=== PATIENT | female | born 1995 | race American Indian/Alaskan Native ===

== ENCOUNTER 2017-10-23 02:00 | Emergency (ER) | payer MEDICAID, OTHER ==
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
[2017-10-23 02:27] VITALS: BP 122/71
== END 2017-10-23 05:04 | disposition home or self-care (01) ==
LOC: DL.ED 02:00
DX: M79.642 Pain in left hand (principal); S80.212A Abrasion, left knee, initial encounter; F10.129 Alcohol abuse with intoxication, unspecified; Z88.6 Allergy status to analgesic agent; Z88.8 Allergy status to other drugs, medicaments and biological substances; W19.XXXA Unspecified fall, initial encounter; Y92.009 Unspecified place in unspecified non-institutional (private) residence as the place of occurrence of the external cause
CPT/HCPCS: 73130-LT; 99283

== ENCOUNTER 2018-02-26 19:43 | Emergency (ER) | payer OTHER ==
[2018-02-26] MEDS ORDERED: Albuterol 6.7 GM Inhaler INH ONE ×2 (19:44→21:48)
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
[2018-02-26 20:44] LABS: ANION GAP 10.3; CHLORIDE,CL 110 mmol/L (101-111); SODIUM,NA 141 mmol/L (135-145)
[2018-02-26] MEDS ORDERED: Codeine/Promethazine 10-6.25 MG/5 ML Syrup 5 ML UD Cup PO ONE (21:35)
== END 2018-02-26 22:00 | disposition home or self-care (01) ==
LOC: DL.ED 19:43
DX: S29.012A Strain of muscle and tendon of back wall of thorax, initial encounter (principal); S20.211A Contusion of right front wall of thorax, initial encounter; J20.9 Acute bronchitis, unspecified; Z88.8 Allergy status to other drugs, medicaments and biological substances; V43.52XA Car driver injured in collision with other type car in traffic accident, initial encounter
CPT/HCPCS: 36415; 71046; 80053; 80305; 81001; 81025; 85025; 99284; A9270; G0480

== ENCOUNTER 2019-05-25 13:47 | Day surgery (SDC) | payer MEDICAID, OTHER ==
[2019-05-25 15:19] LABS: ANION GAP 12.7; CHLORIDE,CL 103 mmol/L (101-111); SODIUM,NA 136 mmol/L (135-145)
[2019-05-25] MEDS ORDERED: Iopamidol 612 MG/ML 100 ML Bottle IVPUSH ONE (15:45)
--- NOTE | 2019-05-25 16:09 | EDM.PDOC ---
ED HPI GENERAL MEDICAL PROBLEM - General Chief Complaint: Abdominal Pain Stated Complaint: INFECTION IN GALLBLADDER Time Seen by Provider: 05/25/19 15:45 Source of Information: Reports: Patient History Limitations: Reports: No Limitations - History of Present Illness INITIAL COMMENTS - FREE TEXT/NARRATIVE: This 24 yo female patient reports was advised to come to the emergency department from the [facility] due to an elevated white count. The patient reports she has diffuse abdominal pain and has not been feeling well for the past couple of days. The patient denies any nausea or vomiting at this vimal. Onset: Sudden Duration: Constant, Getting Worse Location: Reports: Abdomen Quality: Reports: Other Severity: Severe Improves with: Reports: None Worsens with: Reports: None Associated Symptoms: Reports: No Other Symptoms Lower Abdominal Pain Score (Numeric/FACES): 10 - Related Data Allergies Allergy/AdvReac Type Severity Reaction Status Date / Time hydralazine Allergy Hives Verified 05/25/19 14:33 Home Meds: Home Meds . [No Known Home Meds] 05/25/19 [History] Past Medical History HEENT History: Reports: Impaired Vision Other HEENT History: wears glasses Cardiovascular History: Reports: None Respiratory History: Reports: None Gastrointestinal History: Reports: None Other Gastrointestinal History: having stomach pains, will probablly get a check up soon Genitourinary History: Reports: None CASTINGS TRIMMER History: Reports: None Musculoskeletal History: Reports: None Neurological History: Reports: None Psychiatric History: Reports: None Endocrine/Metabolic History: Reports: None, Other (See Below) Other Endocrine/Metabolic History: father states they were told she was borderline diabetic when she graduated from high school Hematologic History: Reports: None Immunologic History: Reports: None Oncologic (Cancer) History: Reports: None Dermatologic History: Reports: None - Infectious Disease History Infectious Disease History: Reports: Chicken Pox - Past Surgical History Head Surgeries/Procedures: Reports: None - History Comment History Comment: 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 Social & Family History - Family History Family Medical History: Noncontributory - Tobacco Use Smoking Status *Q: Current Every Day Smoker Years of Tobacco use: 5 Packs/Tins Daily: 0.5 - Caffeine Use Caffeine Use: Reports: Coffee - Recreational Drug Use Recreational Drug Use: No - Living Situation & Occupation Living situation: Reports: with Family ED ROS GENERAL - Review of Systems Review Of Systems: Comprehensive ROS is negative, except as noted in HPI. ED EXAM, GI/ABD - Physical Exam Exam: See Below Exam Limited By: No Limitations General Appearance: Alert, WD/WN, Moderate Distress Eyes: Bilateral: Normal Appearance, EOMI Ears: Normal External Exam, Normal Canal, Hearing Grossly Normal, Normal TMs Nose: Normal Inspection, Normal Mucosa, No Blood Throat/Mouth: Normal Inspection, Normal Lips, Normal Teeth, Normal Gums, Normal Oropharynx, Normal Voice, No Airway Compromise Head: Atraumatic, Normocephalic Neck: Normal Inspection, Supple, Non-Tender, Full Range of Motion Respiratory/Chest: No Respiratory Distress, Lungs Clear, Normal Breath Sounds, No Accessory Muscle Use, Chest Non-Tender Cardiovascular: Normal Peripheral Pulses, Regular Rate, Rhythm, No Edema, No Gallop, No JVD, No Murmur, No Rub GI/Abdominal Exam: Normal Bowel Sounds, Guarding, Tender (diffuse) (Female) Exam: Deferred Rectal (Female) Exam: Deferred Back Exam: Normal Inspection, Full Range of Motion, NT Extremities: Normal Inspection, Normal Range of Motion, Non-Tender, Normal Capillary Refill, No Pedal Edema Neurological: Alert, Oriented, CN II-XII Intact, Normal Cognition, Normal Gait, Normal Reflexes, No Motor/Sensory Deficits Psychiatric: Normal Affect, Normal Mood Skin Exam: Warm, Dry, Intact, Normal Color, No Rash Lymphatic: No Adenopathy Course - Vital Signs Last Recorded V/S: Last Vital Signs Temp 37.1 C 05/25/19 14:34 Pulse 92 05/25/19 14:34 Resp 20 05/25/19 14:34 BP 100/58 L 05/25/19 14:34 Pulse Ox 100 05/25/19 14:34 - Orders/Labs/Meds Orders: Active Orders 24 hr Category Date Time Status Sodium Chloride 0.9% [Normal Saline] 1,000 ml Med 05/25/19 16:37 Ordered IV .BOLUS Medication Orders Sodium Chloride (Normal Saline) 1,000 mls @ 999 mls/hr IV .BOLUS ONE Stop: 05/25/19 17:37 Last Admin: 05/25/19 16:42 Dose: 999 mls/hr Labs: Laboratory Tests 05/25/19 05/25/19 05/25/19 Range/Units 14:44 14:49 14:49 WBC 17.2 H (5.0-10.0) 10^3/uL RBC 4.39 (4.2-5.4) 10^6/uL Hgb 11.3 L (12.0-16.0) g/dL Hct 35.5 L (37.0-47.0) % MCV 80.9 D (80-100) fL MCH 25.7 L (27.0-34.0) pg MCHC 31.8 L (33.0-35.0) g/dL Plt Count 290 (150-450) 10^3/uL Neut % (Auto) 91.8 H (42.2-75.2) % Lymph % (Auto) 4.2 L (20.5-50.1) % [place] % (Auto) 3.9 (2-8) % Eos % (Auto) 0.0 L (1.0-3.0) % Baso % (Auto) 0.1 (0.0-1.0) % Sodium 136 (135-145) mmol/L Potassium 3.7 (3.6-5.0) mmol/L Chloride 103 (101-111) mmol/L Carbon Dioxide 24.0 (21.0-31.0) mmol/L Anion Gap 12.7 BUN 14 D (7-18) mg/dL Creatinine 0.6 (0.6-1.3) mg/dL Est Cr Clr Drug Dosing 157.69 mL/min Estimated GFR (MDRD) > 60 BUN/Creatinine Ratio 23.33 Glucose 107 H (74-105) mg/dL Lactic Acid (0.5-2.2) mmol/L Calcium 8.9 (8.4-10.2) mg/dl Total Bilirubin 1.0 (0.2-1.0) mg/dL AST 21 (10-42) IU/L ALT 17 (10-60) IU/L Alkaline Phosphatase 61 (42-121) IU/L Total Protein 8.3 H (6.7-8.2) g/dl Albumin 4.3 (3.2-5.5) g/dl Globulin 4.0 Albumin/Globulin Ratio 1.08 Amylase 49 (28-100) U/L Lipase (22-51) U/L Urine Color Dark yellow (YELLOW) Urine Appearance Clear (CLEAR) Urine pH 6.0 (5.0-9.0) Ur Specific [place] >= 1.030 (1.005-1.030) Urine Protein 30 H (NEGATIVE) Urine Glucose (UA) Negative (NEGATIVE) Urine Ketones Negative (NEGATIVE) Urine Occult Blood Large H (NEGATIVE) Urine Nitrite Negative (NEGATIVE) Urine Bilirubin Negative (NEGATIVE) Urine Urobilinogen 0.2 (0.2-1.0) mg/dL Ur Leukocyte Esterase Negative (NEGATIVE) Urine RBC 10-20 H /HPF Urine WBC 0-5 (0-5/HPF) /HPF Ur Epithelial Cells Many H (NOT SEEN) /HPF Urine Bacteria Few (0-FEW/HPF) /HPF Urine Mucus Many H (NOT SEEN) /LPF Urine Opiates Screen (NEGATIVE) Ur Oxycodone Screen (NEGATIVE) Urine Methadone Screen (NEGATIVE) Ur Barbiturates Screen (NEGATIVE) U Tricyclic Antidepress (NEGATIVE) Ur Phencyclidine Scrn (NEGATIVE) Ur Amphetamine Screen (NEGATIVE) U Methamphetamines Scrn (NEGATIVE) Urine MDMA Screen (NEGATIVE) U Benzodiazepines Scrn (NEGATIVE) Urine Cocaine Screen (NEGATIVE) U Marijuana (THC) Screen (NEGATIVE) Ethyl Alcohol < 5 mg/dL 05/25/19 05/25/19 05/25/19 Range/Units 14:49 14:49 14:52 WBC (5.0-10.0) 10^3/uL RBC (4.2-5.4) 10^6/uL Hgb (12.0-16.0) g/dL Hct (37.0-47.0) % MCV (80-100) fL MCH (27.0-34.0) pg MCHC (33.0-35.0) g/dL Plt Count (150-450) 10^3/uL Neut % (Auto) (42.2-75.2) % Lymph % (Auto) (20.5-50.1) % [place] % (Auto) (2-8) % Eos % (Auto) (1.0-3.0) % Baso % (Auto) (0.0-1.0) % Sodium (135-145) mmol/L Potassium (3.6-5.0) mmol/L Chloride (101-111) mmol/L Carbon Dioxide (21.0-31.0) mmol/L Anion Gap BUN (7-18) mg/dL Creatinine (0.6-1.3) mg/dL Est Cr Clr Drug Dosing mL/min Estimated GFR (MDRD) BUN/Creatinine Ratio Glucose (74-105) mg/dL Lactic Acid 1.0 (0.5-2.2) mmol/L Calcium (8.4-10.2) mg/dl Total Bilirubin (0.2-1.0) mg/dL AST (10-42) IU/L ALT (10-60) IU/L Alkaline Phosphatase (42-121) IU/L Total Protein (6.7-8.2) g/dl Albumin (3.2-5.5) g/dl Globulin Albumin/Globulin Ratio Amylase (28-100) U/L Lipase 23 (22-51) U/L Urine Color (YELLOW) Urine Appearance (CLEAR) Urine pH (5.0-9.0) Ur Specific [place] (1.005-1.030) Urine Protein (NEGATIVE) Urine Glucose (UA) (NEGATIVE) Urine Ketones (NEGATIVE) Urine Occult Blood (NEGATIVE) Urine Nitrite (NEGATIVE) Urine Bilirubin (NEGATIVE) Urine Urobilinogen (0.2-1.0) mg/dL Ur Leukocyte Esterase (NEGATIVE) Urine RBC /HPF Urine WBC (0-5/HPF) /HPF Ur Epithelial Cells (NOT SEEN) /HPF Urine Bacteria (0-FEW/HPF) /HPF Urine Mucus (NOT SEEN) /LPF Urine Opiates Screen Negative (NEGATIVE) Ur Oxycodone Screen Negative (NEGATIVE) Urine Methadone Screen Negative (NEGATIVE) Ur Barbiturates Screen Negative (NEGATIVE) U Tricyclic Antidepress Negative (NEGATIVE) Ur Phencyclidine Scrn Negative (NEGATIVE) Ur Amphetamine Screen Negative (NEGATIVE) U Methamphetamines Scrn Negative (NEGATIVE) Urine MDMA Screen Negative (NEGATIVE) U Benzodiazepines Scrn Negative (NEGATIVE) Urine Cocaine Screen Negative (NEGATIVE) U Marijuana (THC) Screen Negative (NEGATIVE) Ethyl Alcohol mg/dL Meds: Medications Generic Name Dose Route Start Last Admin Trade Name Freq PRN Reason Stop Dose Admin Sodium Chloride 1,000 mls @ 999 mls/hr 05/25/19 16:37 05/25/19 16:42 Normal Saline IV 05/25/19 17:37 999 mls/hr .BOLUS ONE Administration Discontinued Medications Generic Name Dose Route Start Last Admin Trade Name Kulwant PRN Reason Stop Dose Admin Iopamidol 75 ml 05/25/19 15:45 05/25/19 16:16 Isovue-300 (61%) IVPUSH 05/25/19 15:46 75 ml ONETIME ONE Administration Departure - Departure Time of Disposition: 17:03 Disposition: Admitted As Inpatient 66 Condition: Fair Clinical Impression: Abdominal pain Qualifiers: Abdominal location: generalized Qualified Code(s): R10.84 - Generalized abdominal pain Cholelithiasis Qualifiers: Cholelithiasis location: gallbladder Cholecystitis presence: with cholecystitis Cholecystitis acuity: acute Biliary obstruction: without biliary obstruction Qualified Code(s): K80.00 - Calculus of gallbladder with acute cholecystitis without obstruction - Discharge Information Care Plan Goals: Discussed the patient history, examination, lab and CT results with Dr. Murillo. Dr. Murillo accepted the patient for continued treatment and further evaluation. Sepsis Event Note - Evaluation Sepsis Screening Result: No Definite Risk - Focused Exam Vital Signs: Vital Signs Temp Pulse Resp BP Pulse Ox 05/25/19 14:34 37.1 C 92 20 100/58 L 100 Date Exam was Performed: 05/25/19 Time Exam was Performed: 17:03 - My Orders Last 24 Hours: My Active Orders 05/25/19 16:37 Sodium Chloride 0.9% [Normal Saline] 1,000 ml IV .BOLUS - Assessment/Plan Last 24 Hours: My Active Orders 05/25/19 16:37 Sodium Chloride 0.9% [Normal Saline] 1,000 ml IV .BOLUS
[2019-05-25] MEDS ORDERED: Sodium Chloride 0.9% 1,000 ML IV ONE (16:37)
--- NOTE | 2019-05-25 16:42 | CT ---
EXAMINATION: Abdomen Pelvis w Cont SEX: Female AGE: 24 years CLINICAL HISTORY: 24-year-old 198 pound female smoker with ABDOMINAL PAIN (WBC 17,000) who was reported on previous CT scan 11 December 2018 to have "cholelithiasis" but otherwise unremarkable. Scan technique: Volume acquisition of data emergency CT scan abdomen without oral contrast but during the intravenous administration 75 cc nonionic Isovue while patient was lying supine on the Siemens multi slice scanner [facility]. All data archived in the PACS system for storage, reformatting and study. Interpretation: Abnormal. 1. At least one large concentrically calcified GALLSTONE. No gallbladder wall thickening or pericystic fluid. No abnormal dilatation of the intra or extrahepatic biliary ducts. 2. Liver, stomach, spleen, pancreas, adrenal glands and kidneys unremarkable except for solitary tiny cyst upper pole right kidney. No renal calcifications or signs of obstructive uropathy. Empty bladder unremarkable. 3. No abdominal or pelvic mass lesion, mesenteric or retroperitoneal lymphadenopathy, inflammatory "dirty" peritoneal fat, sign of mechanical bowel obstruction, ascites or free intraperitoneal air. (Fluid in the colon suggests gastroenteritis) 4. Normal caliber aortoiliac vessels. Lumbar spine unremarkable. 5. Normal cardiac silhouette. Lung bases clear. 6. Normal midline uterus. No adnexal mass lesions. CONCLUSION: Tiny right renal cyst. Cholelithiasis. Possible gastroenteritis. Emergency CT scan abdomen and pelvis otherwise unremarkable.
[2019-05-25] MEDS ORDERED: ceFAZolin 2 GM in Premix Bag 1 BAG IV ONE (17:24)
[2019-05-25] MEDS ORDERED: HYDROmorphone 1 MG/ML Syringe IVPUSH ONE (17:25)
[2019-05-25] MEDS ORDERED: Propofol 200 MG/20 ML SDV IV ONE (17:27)
[2019-05-25] MEDS ORDERED: Lactated Ringers 1,000 ML IV ONE (17:27)
[2019-05-25] MEDS ORDERED: fentaNYL 250 MCG/5 ML SDV IV ONE (17:27)
[2019-05-25] MEDS ORDERED: Lidocaine 2% 20 ML MDV ONE (17:27)
[2019-05-25] MEDS ORDERED: Dexamethasone 4 MG/ML SDV IV ONE (17:27)
[2019-05-25] MEDS ORDERED: Midazolam 1 MG/ML 2 ML SDV IV ONE (17:27)
[2019-05-25] MEDS ORDERED: Neostigmine Methylsulfate 10 MG/10 ML MDV IV ONE (17:27)
[2019-05-25] MEDS ORDERED: Ondansetron 4 MG/2 ML SDV IV ONE (17:27)
[2019-05-25] MEDS ORDERED: Rocuronium 100 MG/10 ML MDV IV ONE (17:27)
[2019-05-25] MEDS ORDERED: Ketorolac 30 MG/ML SDV IVPUSH ONE (17:27)
[2019-05-25] MEDS ORDERED: Glycopyrrolate 0.2 MG/ML 2 ML SDV IV ONE (17:27)
[2019-05-25] MEDS ORDERED: Sugammadex Sodium 200 MG/2 ML VIAL ONE (18:44)
[2019-05-25] MEDS ORDERED: Morphine 2 MG/ML Syringe IVPUSH PRN (19:05)
[2019-05-25] MEDS ORDERED: Sodium Chloride 0.9% 10 ML Syringe FLUSH PRN (19:07)
[2019-05-25] MEDS: Acetaminophen/oxyCODONE 325-5 MG Tab PO PRN (20:37)
--- NOTE | 2019-05-25 23:17 | OR ---
DATE: 05/25/2019 POSTOPERATIVE DIAGNOSES: Chronic cholecystitis, cholelithiasis and diffuse abdominal pain with leukocytosis. POSTOPERATIVE DIAGNOSES: Chronic cholecystitis, cholelithiasis and diffuse abdominal pain with leukocytosis. PROCEDURE: Laparoscopic cholecystectomy. ANESTHESIA: General. ESTIMATED BLOOD LOSS: Minimal. SPECIMEN: Gallbladder and stone. INDICATION FOR PROCEDURE: This 24-year-old female presents to the emergency room with more or less diffuse abdominal pain and an elevated white blood cell count to 17,000. She has had a 2-day history of being sick with abdominal pain. A CT scan shows a large single stone within the gallbladder. No other abnormalities except for a small renal cyst. OPERATIVE FINDINGS: Normal anatomy with gallbladder containing 1 large single stone. PROCEDURE IN DETAIL: After adequate preparation, an infraumbilical incision was made. A Veress needle placed intra-abdominally for insufflation. This was then exchanged for a 5-mm trocar. Two other 5-mm trocars were placed under direct vision as well as an epigastric 10-mm port. As the patient had diffuse and especially lower abdominal pain, I did spend some time looking down in the pelvis. The patient was placed in Trendelenburg and the small bowel was taken out of the pelvis. I could see the right tube and ovary which appeared to be normal, as did the left tube and ovary. There was no evidence of cystic structures or inflammation of the tubes. I did not examine the uterus very well. The small bowel and colon within the pelvis looked normal and no evidence of Crohn disease or enteritis externally. The appendix was noted and is also normal. I did not mobilize it from the attachments near the cecum. No other intraabdominal abnormalities were noted. The patient was then placed in reverse Trendelenburg. The cystic triangle structures were identified, divided, triply clipped, and then severed. The gallbladder was taken off the liver bed using cautery dissection. There was no spillage of bile or stones and no bleeding. The gallbladder was taken out through the epigastric trocar site by dilating the fascia, which was then reclosed using 0-Vicryl suture, 4-0 Vicryl was used for the skin. [facility] /[id number]
[2019-05-26] MEDS: Acetaminophen/oxyCODONE 325-5 MG Tab PO PRN ×3 (00:33→08:29)
--- NOTE | 2019-05-26 07:44 | PCM.SN ---
- Free Text/Narrative Note: Stable POD#1. Pain better. PO tolerated. VSS. Can discharge. FU PCP clinic if needed. Percocet (#10) given for pain. No restrictions.
[2019-05-26 08:32] VITALS: BP 110/48; PULSE 70
--- NOTE | 2019-05-26 08:53 | HP ---
INTRODUCTION: This 24-year-old female was referred by [facility] to the emergency room for evaluation of abdominal pain and an elevated white blood cell count. The patient states she has had more or less diffuse abdominal pain over the last 2 days and has tried to take some Tylenol for this without any improvement. She had a CT scan done, which showed a large gallstone in the neck of the gallbladder and there are no other abnormalities noted except a small renal cyst. The patient's white count in the emergency room here was 17,000. She has no nausea or vomiting. PAST MEDICAL HISTORY: ALLERGIES: The patient has an allergy to some kind of antidepressant, but she does not remember the name. She otherwise has no other medicine allergies to antibiotics. MEDICATIONS: She does not take any current medications regularly. PAST SURGICAL HISTORY: She has had no prior surgeries. FAMILY HISTORY AND SOCIAL HISTORY: The patient is single. She has a live-in boyfriend. She currently does not work. She does smoke cigarettes, only occasionally uses alcohol, and has had problems with drugs, but presently claims to be clean. REVIEW OF SYSTEMS: Negative for all systems. 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 PHYSICAL EXAMINATION: HEENT: Normal. Chest: Lungs are clear bilaterally. Heart: Normal sinus rhythm. Abdomen: Tender diffusely, however, by my exam seems to be more lower than upper abdomen. She does have a positive Blevins sign in the right upper quadrant. Bowel sounds are normal. Extremities: Good range of motion. Neurologic: Intact. ASSESSMENT: Diffuse abdominal pain, cholelithiasis and elevated white blood cell count. PLAN: I think some of her symptoms could be related to the gallbladder; however, I do not think it accounts for all of her diffuse pain. I cannot see anything else on CAT scan, however, and her lower abdominal pain can be evaluated when her gallbladder is removed. I discussed this option with the patient of proceeding with a laparoscopic cholecystectomy. For the current time, I am going to give her some IV antibiotics, pain control, and proceed with surgery this evening. [facility] /[id number]
[2019-05-26] MEDS ORDERED: Sodium Chloride 0.9% 1,000 ML IV ONE (09:18)
== END 2019-05-26 10:15 | disposition home or self-care (01) ==
LOC: DL.ED 13:47 → DL.SDS 17:26 → DL.MS 21:01 → DL.SDS 05-26 10:15
PROVIDERS: ATTEND Surgery
DX: K80.10 Calculus of gallbladder with chronic cholecystitis without obstruction (principal); D72.829 Elevated white blood cell count, unspecified; F17.210 Nicotine dependence, cigarettes, uncomplicated; Z88.8 Allergy status to other drugs, medicaments and biological substances
CPT/HCPCS: 36415; 47562; 74177; 80053; 80305; 80320; 81001; 81025; 82150; 83605; 83690; 85025; 96361; 96374; 96375; 99285; A9270; J0690; J1100; J1170; J1885; J2001; J2250; J2405; J2704; J2710; J3010; J3490; J7030; J7120; Q9967; G0480

== ENCOUNTER 2020-01-08 16:17 | Emergency (ER) | payer MEDICAID, OTHER ==
[2020-01-08 16:27] VITALS: BP 157/89; PULSE 111
--- NOTE | 2020-01-08 16:28 | EDM.PDOC ---
ED HPI GENERAL MEDICAL PROBLEM - General Chief Complaint: Lower Extremity Injury/Pain Stated Complaint: LEFT FOOT CUT BY CASSIDY CALZADA Time Seen by Provider: 01/08/20 16:27 Source of Information: Reports: Patient, RN, RN Notes Reviewed - History of Present Illness INITIAL COMMENTS - FREE TEXT/NARRATIVE: Patient presents to ER with complaint of cutting her left great toe with a lawnmower blade. Patient states the lawnmower was getting clogged up and she was trying to unclog the area. States the lawnmower blade hit her left great toe, cutting her shoe. No blood visible on the shoe upon arrival. Blade did hit the left great toe causing a 3.5 cm laceration to the medial great toe. Also pulled up the proximal great toenail from the nail bed. Nail is intact just lifted from the bed. Patient states her tetanus was last updated approximately 2 years ago. Onset: Today, Sudden Left Feet Pain Score (Numeric/FACES): 10 - Related Data Allergies Allergy/AdvReac Type Severity Reaction Status Date / Time hydralazine Allergy Hives Verified 01/08/20 16:27 Home Meds: Home Meds . [No Known Home Meds] 05/25/19 [History] Past Medical History HEENT History: Reports: Impaired Vision Other HEENT History: wears glasses Cardiovascular History: Reports: None Respiratory History: Reports: None Gastrointestinal History: Reports: None Other Gastrointestinal History: having stomach pains, will probablly get a check up soon Genitourinary History: Reports: None HIGH PRESSURE OPERATOR History: Reports: None Musculoskeletal History: Reports: None Neurological History: Reports: None Psychiatric History: Reports: None Endocrine/Metabolic History: Reports: None, Other (See Below) Other Endocrine/Metabolic History: father states they were told she was b orderline diabetic when she graduated from high school Hematologic History: Reports: None Immunologic History: Reports: None Oncologic (Cancer) History: Reports: None Dermatologic History: Reports: None - Infectious Disease History Infectious Disease History: Reports: Chicken Pox - Past Surgical History Head Surgeries/Procedures: Reports: None - History Comment History Comment: 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 Social & Family History - Family History Family Medical History: Noncontributory - Caffeine Use Caffeine Use: Reports: Coffee - Living Situation & Occupation Living situation: Reports: with Family Review of Systems - Review of Systems Review Of Systems: Comprehensive ROS is negative, except as noted in HPI. ED EXAM, GENERAL - Physical Exam Exam: See Below Exam Limited By: No Limitations General Appearance: Alert, WD/WN, Moderate Distress Eye Exam: Bilateral Eye: EOMI, Normal Inspection Ears: Normal External Exam, Hearing Grossly Normal Nose: Normal Inspection Throat/Mouth: Normal Inspection, Normal Voice, No Airway Compromise Head: Atraumatic, Normocephalic Neck: Normal Inspection, Supple, Non-Tender, Full Range of Motion Respiratory/Chest: No Respiratory Distress, Lungs Clear, Normal Breath Sounds, No Accessory Muscle Use, Chest Non-Tender Cardiovascular: Normal Peripheral Pulses, Regular Rate, Rhythm, No Edema, No Gallop, No JVD, No Murmur, No Rub Peripheral Pulses: 2+: Radial (L), Radial (R), Dorsalis Pedis (L), Dorsalis Pedis (R) GI/Abdominal: Normal Bowel Sounds, Soft, Non-Tender (Female) Exam: Deferred Rectal (Female) Exam: Deferred Back Exam: Normal Inspection, Full Range of Motion, NT Extremities: Normal Inspection, Normal Range of Motion, Non-Tender, Normal Capillary Refill, No Pedal Edema Neurological: Alert, Oriented, CN II-XII Intact, Normal Cognition, Normal Gait, Normal Reflexes, No Motor/Sensory Deficits Psychiatric: Normal Affect, Normal Mood, Anxious Skin Exam: Warm, Dry, Other (3.5cm laceration to left great toe) Lymphatic: No Adenopathy ED TRAUMA EXTREMITY PROCEDURES - Laceration/Wound Repair Left Medial Toe - Great Lac/Wound Length In cm: 3.5 Appearance: Subcutaneous Distal NVT: Neuro & Vascular Intact Anesthetic Type: Local Local Anesthesia - Lidocaine (Xylocaine): 1% Plain Local Anesthetic Volume: 4cc Skin Prep: Chlorhexidine (Hibiciens) Exploration/Debridement/Repair: Wound Explored, In a Bloodless Field, No Foreign Material Found Closed With: Sutures Suture Size: 4-0 # of Sutures: 4 Suture Type: Nylon, Interrupted Drain Placement: No Sterile Dressing Applied: Provider Tetanus Status Addressed: Yes Complications: No Course - Vital Signs Last Recorded V/S: Last Vital Signs Temp 98.4 F 01/08/20 16:21 Pulse 111 H 01/08/20 16:21 Resp 18 01/08/20 16:21 BP 157/89 H 01/08/20 16:21 Pulse Ox 98 01/08/20 16:21 - Orders/Labs/Meds Meds: Medications Discontinued Medications Generic Name Dose Route Start Last Admin Trade Name Kulwant PRN Reason Stop Dose Admin Bacitracin 1 dose 01/08/20 16:45 01/08/20 17:10 Bacitracin Oint 1 Gm TOP 01/08/20 16:46 1 dose ONETIME ONE Administration Cephalexin 500 mg 01/08/20 17:49 01/08/20 17:57 Keflex PO 01/08/20 17:50 500 mg ONETIME ONE Administration Lidocaine HCl 30 ml 01/08/20 16:45 01/08/20 17:09 Xylocaine-Mpf 1% INJECT 01/08/20 16:46 30 ml ONETIME ONE Administration - Radiology Interpretation Free Text/Narrative:: Xray left great toe: PROCEDURE INFORMATION: Exam: XR Left Toe(s) Exam date and time: 01/08/2020 5:30 PM Age: 24 years old Clinical indication: Injury or trauma; Injury history: Lawnmower blade cut; Initial encounter; Blunt trauma; Toes; Left; Injury date: 01-08-2020; Additional info: bed spring maker blade cut left great toe TECHNIQUE: Imaging protocol: XR Left toes. Views: Minimum 2 views. COMPARISON: No relevant prior studies available. FINDINGS: Bones/joints: Acute fractures distal phalanx great toe. Soft tissues: Soft tissue edema great toe. Otherwise unremarkable. No radiopaque foreign body. IMPRESSION: Acute fractures distal phalanx great toe. Soft tissue edema. Thank you for allowing us to participate in the care of your patient. Dictated and Authenticated by: Venancio Alex MD 01/08/2020 5:46 PM Central Time ([place] & [place]) See rad report Departure - Departure Time of Disposition: 17:58 Disposition: Home, Self-Care 01 Condition: Fair Clinical Impression: Laceration, Injury of nail bed of toe Fracture of phalanx of left great toe Qualifiers: Encounter type: initial encounter Fracture type: open Phalanx: distal Fracture alignment: nondisplaced Qualified Code(s): S92.425B - Nondisplaced fracture of distal phalanx of left great toe, initial encounter for open fracture - Discharge Information *PRESCRIPTION DRUG MONITORING PROGRAM REVIEWED*: No *COPY OF PRESCRIPTION DRUG MONITORING REPORT IN PATIENT CANDELARIA: No Instructions: Toe Fracture, [id number], Laceration Care, Adult, [id number], Sutures, Geovanny, or Adhesive Wound Closure, [id number], Nail Bed Injury, [id number] Forms: ED Department Discharge Additional Instructions: Keep area clean and dry You may shower, but dab dry and keep covered to keep clean Monitor for signs of infection i.e. redness, swelling, drainage, warmth, fever or chills Follow-up in the clinic in 7 to 10 days to have sutures removed RX: Cephalexin Sepsis Event Note (ED) - Evaluation Sepsis Screening Result: No Definite Risk - Focused Exam Vital Signs: Vital Signs Temp Pulse Resp BP Pulse Ox 01/08/20 16:21 98.4 F 111 H 18 157/89 H 98
[2020-01-08] MEDS ORDERED: Lidocaine 1% 30 ML SDV INJECT ONE (16:45)
[2020-01-08] MEDS ORDERED: Bacitracin Oint 1 GM U/D Packet TOP ONE (16:45)
--- NOTE | 2020-01-08 17:46 | CR ---
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 Views: Minimum 2 views. COMPARISON: No relevant prior studies available. FINDINGS: Bones/joints: Acute fractures distal phalanx great toe. Soft tissues: Soft tissue edema great toe. Otherwise unremarkable. No radiopaque foreign body. IMPRESSION: Acute fractures distal phalanx great toe. Soft tissue edema.
[2020-01-08] MEDS ORDERED: Cephalexin 500 MG Cap PO ONE (17:49)
== END 2020-01-08 18:02 | disposition home or self-care (01) ==
LOC: DL.ED 16:17
DX: S92.425B Nondisplaced fracture of distal phalanx of left great toe, initial encounter for open fracture (principal); Z88.8 Allergy status to other drugs, medicaments and biological substances; W28.XXXA Contact with powered lawn mower, initial encounter
CPT/HCPCS: 12002; 73660; 99283; 99284; A9270; J2001

== ENCOUNTER 2020-11-20 19:36 | Emergency (ER) | payer MEDICAID, OTHER ==
[2020-11-20 20:24] VITALS: BP 123/65; PULSE 99
[2020-11-20 20:29] LABS: ANION GAP 13.1 mEq/L (7-13); CHLORIDE,CL 101 mmol/L (98-107); SODIUM,NA 135 mmol/L (136-145)
--- NOTE | 2020-11-20 22:55 | EDM.PDOC ---
ED HPI GENERAL MEDICAL PROBLEM - General Chief Complaint: General Stated Complaint: MEDICAL CLEARANCE DANTE Time Seen by Provider: 11/20/20 22:20 Source of Information: Reports: Patient, Police, RN, RN Notes Reviewed History Limitations: Reports: No Limitations - History of Present Illness INITIAL COMMENTS - FREE TEXT/NARRATIVE: Patient is a 25-year-old female who presents to ER with DANTE officer for medical clearance prior to incarceration. Patient states she does know she is . States LMP was "in August", unsure of the date. She states she does have her 1st appointment set up at [facility] on November 27. Patient states this is her 1st , denies any miscarriages. Patient denies any drug or alcohol use. States the only medication she takes is a vitamin on a daily basis. Patient also denies any vaginal bleeding, cramping or pain. Onset: Unknown/Unsure - Related Data Allergies Allergy/AdvReac Type Severity Reaction Status Date / Time hydralazine Allergy Hives Verified 01/08/20 16:27 Home Meds: Home Meds . [No Known Home Meds] 05/25/19 [History] Past Medical History - Past Health History Medical/Surgical History: Denies Medical/Surgical History HEENT History: Reports: Impaired Vision Other HEENT History: wears glasses Cardiovascular History: Reports: None Respiratory History: Reports: None Gastrointestinal History: Reports: None Other Gastrointestinal History: having stomach pains, will probablly get a check up soon Genitourinary History: Reports: None ADMISSIONS GATE ATTENDANT History: Reports: None Musculoskeletal History: Reports: None Neurological History: Reports: None Psychiatric History: Reports: None Endocrine/Metabolic History: Reports: None, Other (See Below) Other Endocrine/Metabolic History: father states they were told she was borderline diabetic when she graduated from high school Hematologic History: Reports: None Immunologic History: Reports: None Oncologic (Cancer) History: Reports: None Dermatologic History: Reports: None - Infectious Disease History Infectious Disease History: Reports: Chicken Pox - Past Surgical History Head Surgeries/Procedures: Reports: None GI Surgical History: Reports: None - History Comment History Comment: 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 Social & Family History - Family History Family Medical History: No Pertinent Family History - Tobacco Use Tobacco Use Status *Q: Current Every Day Tobacco User Years of Tobacco use: 2 Packs/Tins Daily: 0.1 Second Hand Smoke Exposure: Yes - Caffeine Use Caffeine Use: Reports: Coffee - Recreational Drug Use Recreational Drug Use: No - Living Situation & Occupation Living situation: Reports: with Family ED ROS GENERAL - Review of Systems Review Of Systems: Comprehensive ROS is negative, except as noted in HPI. ED EXAM, GENERAL - Physical Exam Exam: See Below Exam Limited By: No Limitations General Appearance: Alert, WD/WN, No Apparent Distress Eye Exam: Bilateral Eye: EOMI, Normal Inspection Ears: Normal External Exam, Hearing Grossly Normal Nose: Normal Inspection Throat/Mouth: Normal Inspection, Normal Voice, No Airway Compromise Head: Atraumatic, Normocephalic Neck: Normal Inspection, Supple, Non-Tender, Full Range of Motion Respiratory/Chest: No Respiratory Distress, Lungs Clear, Normal Breath Sounds, No Accessory Muscle Use, Chest Non-Tender Cardiovascular: Normal Peripheral Pulses, Regular Rate, Rhythm, No Edema, No Gallop, No JVD, No Murmur, No Rub Peripheral Pulses: 2+: Radial (L), Radial (R) GI/Abdominal: Normal Bowel Sounds, Soft, Non-Tender (Female) Exam: Deferred Rectal (Female) Exam: Deferred Back Exam: Normal Inspection, Full Range of Motion, NT Extremities: Normal Inspection, Normal Range of Motion, Non-Tender, Normal Ca pillary Refill, No Pedal Edema Neurological: Alert, Oriented, CN II-XII Intact, Normal Cognition, Normal Gait, Normal Reflexes, No Motor/Sensory Deficits Psychiatric: Normal Affect, Normal Mood Skin Exam: Warm, Dry, Intact, Normal Color, No Rash Lymphatic: No Adenopathy Course - Vital Signs Last Recorded V/S: Last Vital Signs Temp 98 F 11/20/20 20:18 Pulse 99 11/20/20 20:18 Resp 18 11/20/20 20:18 BP 123/65 11/20/20 20:18 Pulse Ox 97 11/20/20 20:18 - Orders/Labs/Meds Orders: Active Orders 24 hr Category Date Time Status CULTURE URINE [RM] Stat Lab 11/20/20 19:57 Received Labs: Laboratory Tests 11/20/20 11/20/20 11/20/20 Range/Units 19:55 19:55 19:57 WBC 9.1 (5.0-10.0) 10^3/uL RBC 4.65 (4.2-5.4) 10^6/uL Hgb 11.9 L (12.0-16.0) g/dL Hct 37.2 (37.0-47.0) % MCV 80.0 (80-100) fL MCH 25.6 L (27.0-34.0) pg MCHC 32.0 L (33.0-35.0) g/dL Plt Count 324 (150-450) 10^3/uL Neut % (Auto) 63.7 (42.2-75.2) % Lymph % (Auto) 23.0 (20.5-50.1) % [place] % (Auto) 10.8 H (2-8) % Eos % (Auto) 2.4 (1.0-3.0) % Baso % (Auto) 0.1 (0.0-1.0) % Sodium 135 L (136-145) mmol/L Potassium 4.1 (3.5-5.1) mmol/L Chloride 101 (98-107) mmol/L Carbon Dioxide 25 (21-32) mmol/L Anion Gap 13.1 H (7-13) mEq/L BUN 9 (7-18) mg/dL Creatinine 0.52 L (0.55-1.02) mg/dL Est Cr Clr Drug Dosing 180.40 mL/min Estimated GFR (MDRD) > 60 BUN/Creatinine Ratio 17.3 (No establ ref range) Glucose 101 H (70-99) mg/dL Calcium 8.2 L (8.5-10.1) mg/dL Total Bilirubin 0.2 (0.2-1.0) mg/dL AST 23 (15-37) U/L ALT 65 H (14-59) U/L Alkaline Phosphatase 81 (46-116) U/L Total Protein 7.6 (6.4-8.2) g/dL Albumin 3.1 L (3.4-5.0) g/dL Globulin 4.5 Albumin/Globulin Ratio 0.69 Urine Color (YELLOW) Urine Appearance (CLEAR) Urine pH (5.0-9.0) Ur Specific [place] (1.005-1.030) Urine Protein (NEGATIVE) Urine Glucose (UA) (NEGATIVE) Urine Ketones (NEGATIVE) Urine Occult Blood (NEGATIVE) Urine Nitrite (NEGATIVE) Urine Bilirubin (NEGATIVE) Urine Urobilinogen (0.2-1.0) mg/dL Ur Leukocyte Esterase (NEGATIVE) Urine RBC /HPF Urine WBC (0-5/HPF) /HPF Ur Epithelial Cells (NOT SEEN) /HPF Amorphous Sediment (NOT SEEN) /HPF Urine Bacteria (0-FEW/HPF) /HPF Urine Mucus (NOT SEEN) /LPF Urine Trichomonas (NOT SEEN) /HPF Urine HCG, Qual Positive Urine Opiates Screen (NEGATIVE) Ur Oxycodone Screen (NEGATIVE) Urine Methadone Screen (NEGATIVE) Ur Barbiturates Screen (NEGATIVE) U Tricyclic Antidepress (NEGATIVE) Ur Phencyclidine Scrn (NEGATIVE) Ur Amphetamine Screen (NEGATIVE) U Methamphetamines Scrn (NEGATIVE) Urine MDMA Screen (NEGATIVE) U Benzodiazepines Scrn (NEGATIVE) Urine Cocaine Screen (NEGATIVE) U Marijuana (THC) Screen (NEGATIVE) Ethyl Alcohol < 3 (0) mg/dL 11/20/20 11/20/20 Range/Units 19:57 19:57 WBC (5.0-10.0) 10^3/uL RBC (4.2-5.4) 10^6/uL Hgb (12.0-16.0) g/dL Hct (37.0-47.0) % MCV (80-100) fL MCH (27.0-34.0) pg MCHC (33.0-35.0) g/dL Plt Count (150-450) 10^3/uL Neut % (Auto) (42.2-75.2) % Lymph % (Auto) (20.5-50.1) % [place] % (Auto) (2-8) % Eos % (Auto) (1.0-3.0) % Baso % (Auto) (0.0-1.0) % Sodium (136-145) mmol/L Potassium (3.5-5.1) mmol/L Chloride (98-107) mmol/L Carbon Dioxide (21-32) mmol/L Anion Gap (7-13) mEq/L BUN (7-18) mg/dL Creatinine (0.55-1.02) mg/dL Est Cr Clr Drug Dosing mL/min Estimated GFR (MDRD) BUN/Creatinine Ratio (No establ ref range) Glucose (70-99) mg/dL Calcium (8.5-10.1) mg/dL Total Bilirubin (0.2-1.0) mg/dL AST (15-37) U/L ALT (14-59) U/L Alkaline Phosphatase (46-116) U/L Total Protein (6.4-8.2) g/dL Albumin (3.4-5.0) g/dL Globulin Albumin/Globulin Ratio Urine Color Yellow (YELLOW) Urine Appearance Turbid (CLEAR) Urine pH 6.0 (5.0-9.0) Ur Specific [place] 1.025 (1.005-1.030) Urine Protein 30 H (NEGATIVE) Urine Glucose (UA) Negative (NEGATIVE) Urine Ketones Negative (NEGATIVE) Urine Occult Blood Trace-intact H (NEGATIVE) Urine Nitrite Negative (NEGATIVE) Urine Bilirubin Negative (NEGATIVE) Urine Urobilinogen 0.2 (0.2-1.0) mg/dL Ur Leukocyte Esterase Large H (NEGATIVE) Urine RBC 10-20 H /HPF Urine WBC >100 H (0-5/HPF) /HPF Ur Epithelial Cells Moderate H (NOT SEEN) /HPF Amorphous Sediment Moderate H (NOT SEEN) /HPF Urine Bacteria Moderate H (0-FEW/HPF) /HPF Urine Mucus Moderate H (NOT SEEN) /LPF Urine Trichomonas Present H (NOT SEEN) /HPF Urine HCG, Qual Urine Opiates Screen Negative (NEGATIVE) Ur Oxycodone Screen Negative (NEGATIVE) Urine Methadone Screen Negative (NEGATIVE) Ur Barbiturates Screen Negative (NEGATIVE) U Tricyclic Antidepress Negative (NEGATIVE) Ur Phencyclidine Scrn Negative (NEGATIVE) Ur Amphetamine Screen Negative (NEGATIVE) U Methamphetamines Scrn Positive H (NEGATIVE) Urine MDMA Screen Negative (NEGATIVE) U Benzodiazepines Scrn Negative (NEGATIVE) Urine Cocaine Screen Negative (NEGATIVE) U Marijuana (THC) Screen Negative (NEGATIVE) Ethyl Alcohol (0) mg/dL - Re-Assessments/Exams Free Text/Narrative Re-Assessment/Exam: 11/21/20 04:27 Attempted with Doppler to hear heart tones, unable to at this time. Departure - Departure Time of Disposition: 22:53 Disposition: Home, Self-Care 01 Condition: Good Clinical Impression: Medical clearance for incarceration, Trichimoniasis Qualifiers: Weeks of gestation: unspecified Qualified Code(s): Z34.90 - Encounter for supervision of normal , unspecified, unspecified trimester UTI (urinary tract infection) Qualifiers: Urinary tract infection type: acute cystitis Hematuria presence: without hematuria Qualified Code(s): N30.00 - Acute cystitis without hematuria - Discharge Information *PRESCRIPTION DRUG MONITORING PROGRAM REVIEWED*: No *COPY OF PRESCRIPTION DRUG MONITORING REPORT IN PATIENT CANDELARIA: No Instructions: First Trimester of , [id number] Referrals: PCP,None [Primary Care Provider] - Forms: ED Department Discharge Additional Instructions: Refrain from using drugs or alcohol Follow up with your primary care facility for your already scheduled appointment on November 27 Continue taking vitamin RX: Metronidazole, Macrobid Patient is medically stable at this time to be discharged with law enforcement Sepsis Event Note (ED) - Evaluation Sepsis Screening Result: No Definite Risk - Focused Exam Vital Signs: Vital Signs Temp Pulse Resp BP Pulse Ox 11/20/20 20:18 98 F 99 18 123/65 97 - My Orders Last 24 Hours: My Active Orders 11/20/20 19:57 CULTURE URINE [RM] Stat - Assessment/Plan Last 24 Hours: My Active Orders 11/20/20 19:57 CULTURE URINE [RM] Stat
== END 2020-11-20 23:21 | disposition home or self-care (01) ==
LOC: DL.ED 19:36
DX: O98.911 Unspecified maternal infectious and parasitic disease complicating pregnancy, first trimester (principal); A59.9 Trichomoniasis, unspecified; Z02.89 Encounter for other administrative examinations
CPT/HCPCS: 36415; 80053; 80305-QW; 80307; 81001; 81025; 85025; 87086; 99283

== ENCOUNTER 2021-06-16 09:30 | Inpatient (IN) | payer MEDICAID ==
[2021-06-16] MEDS ORDERED: Acetaminophen 325 MG Tab PO PRN ×2 (09:36→20:23)
[2021-06-16] MEDS ORDERED: Tranexamic Acid 1,000 MG in Sodium Chloride 0.9% 100 ML IV PRN ×2 (09:36→20:23)
[2021-06-16] MEDS ORDERED: Carboprost Tromethamine 250 MCG/1 ML Amp IM PRN (09:36)
[2021-06-16] MEDS ORDERED: Lactated Ringers 1,000 ML IV ONE (09:36)
[2021-06-16] MEDS ORDERED: Misoprostol 400 MCG (4 X 100 MCG TAB) RECTAL PRN ×2 (09:36→20:23)
[2021-06-16] MEDS ORDERED: Naloxone 2 MG/2 ML Syringe IVPUSH PRN (09:36)
[2021-06-16] MEDS ORDERED: Promethazine 25 MG/ML SDV IM PRN (09:36)
[2021-06-16] MEDS ORDERED: Lidocaine 1% 30 ML SDV INJECT PRN (09:36)
[2021-06-16] MEDS ORDERED: ePHEDrine 50 MG/ML SDV IVPUSH PRN (09:36)
[2021-06-16] MEDS ORDERED: Ondansetron 4 MG/2 ML SDV IVPUSH PRN ×2 (09:36)
[2021-06-16] MEDS ORDERED: Methylergonovine 0.2 MG/1 ML Amp IM PRN (09:36)
[2021-06-16] MEDS ORDERED: Nalbuphine 10 MG/1 ML Vial IM ONE (09:39)
[2021-06-16] MEDS ORDERED: Lactated Ringers 500 ML IV SCH ×2 (09:45)
--- NOTE | 2021-06-16 11:13 | OBOUT ---
DATE: 06/16/2021 STUDY: NST report. INDICATION FOR NST: The patient presents for evaluation of possible early labor. REPORT: Baseline heart rate 140 beats per minute. Moderate lftk-[id number] variability. Accelerations are noted. [place] shows contractions approximately every 3-4 minutes. INTERPRETATION: Category 1 reassuring and reactive NST. [facility] /[id number]
[2021-06-16 12:06] LABS: AMPHETAMINES,URINE NEGATIVE (NEGATIVE); BARBITURATES,URINE NEGATIVE (NEGATIVE); BENZODIAZEPINE,URINE NEGATIVE (NEGATIVE); MDMA (ECSTASY), URINE NEGATIVE (NEGATIVE); METHADONE,URINE NEGATIVE (NEGATIVE); METHAMPHETAMINES,URINE NEGATIVE (NEGATIVE); OPIATES,URINE NEGATIVE (NEGATIVE); OXYCODONE,URINE NEGATIVE (NEGATIVE); PHENCYCLIDINE,URINE NEGATIVE (NEGATIVE); TCA,URINE NEGATIVE (NEGATIVE)
[2021-06-16] MEDS: Benzocaine/Cetylpyridinium/Menthol Lozenge MUCMEM PRN (12:45)
[2021-06-16] MEDS ORDERED: EPINEPHrine 1 MG/ML SDV ONE ×2 (13:03→15:55)
[2021-06-16] MEDS ORDERED: fentaNYL 100 MCG/2 ML SDV ITHECAL ONE (13:03)
[2021-06-16] MEDS: Lactated Ringers 1,000 ML IV SCH ×2 (14:40→16:27)
[2021-06-16] MEDS: Oxytocin/Normal Saline 30 UNIT/500 ML BAG IV SCH ×2 (14:45→21:05)
[2021-06-16] MEDS ORDERED: fentaNYL 100 MCG/2 ML SDV ONE (15:54)
--- NOTE | 2021-06-16 16:32 | PCM.PRNOTE ---
- Free Text/Narrative Note: Requested to provide analgesia to full term patient in severe pain. Upon entering the room, patient is sitting on edge of bed complaining of severe abdominal/pelvic pain and discomfort. Procedure was discussed with patient including adverse outcomes and expectations. Pt consented to analgesia, SAB/IT. Pt placed into a proper sitting position. Landmarks for SAB/IT were identified and marked. Hands were washed and appropriate PPE was applied. Back was prepped with betadine x3. A sterile, transparent, fenestrated drape was applied. Excess betadine was removed. Using 3 mL of a 1% lidocaine solution, a skin wheel was placed at the L2/L3 interspace. A 24 ga (4 inch) Pencan spinal needle was inserted until positive for CSF. Negative for heme or paresthesias. Injected fentanyl 30 mcg, sufentanil 25 mcg, and 9 mg of a 0.75% bupivacaine solution with an epi wash. Pt was placed left lateral tilt position for approximately 20 minutes. There were zero complications or adverse outcomes. Will continue to monitor. Procedure Date & Time: 06/16/2021 [id number]
--- NOTE | 2021-06-16 16:43 | PN ---
DATE: 06/16/2021 TIME: 1625. SUBJECTIVE: The patient is resting comfortably. She has just received her intrathecal, and other than having the abnormal sensation of not being able to feel her legs, she is doing well and has no acute concerns. OBJECTIVE: Cervical exam, felt like it was 6 cm dilated with bulging bag of water intact which was ruptured with [place]nio [place], had good return of clear fluid. After that, cervix felt more like 5 cm dilated, 95% effaced, about 0 station. heart tones are tracing at 140 beats per minute at baseline, moderate [id number]-sr-[id number] variability. Accelerations are noted. [place] showing contractions have spaced a little bit to about every 3 minutes. ASSESSMENT: Overall unchanged from admission. Labor is progressing nicely. We will have a Pitocin running as well as artificial rupture of membranes for active labor management and will be anticipating vaginal delivery in the next 4 to 5 hours. PLAN: Continue with Pitocin and labor management. Nurses will notify me if any concerns or problems arise. [facility] /[id number] LEONARDA
[2021-06-16] MEDS ORDERED: Simethicone 80 MG Tab.Chew PO PRN (20:23)
[2021-06-16] MEDS ORDERED: Benzocaine/Menthol 20%-0.5% Spray 78 GM Cannister TOP PRN (20:23)
[2021-06-16] MEDS ORDERED: Measles, Mumps & Rubella Vaccine 0.5 ML SDV SUBCUT ONE (20:23)
--- NOTE | 2021-06-16 21:40 | DEL ---
DATE: 06/16/2021 PREPROCEDURE DIAGNOSES: 1. 1, para 0 at 40 and 6/7 weeks gestation. 2. Rubella nonimmune, blood type O positive, group B strep negative. 3. Influenza A. 4. Postdates . 5. Anemia of . 6. Obesity. 7. Excessive weight gain of . 8. Edema in the third trimester. 9. Carpal tunnel syndrome of . 10.Pruritus in . 11.History of infections with Trichomonas, gonorrhea, chlamydia and bacterial vaginosis this . POSTPROCEDURE DIAGNOSES: 1. 1, para 0 at 40 and 6/7 weeks gestation. 2. Status post spontaneous vaginal delivery of a large for gestational age female infant. 3. Rubella nonimmune, blood type O positive, group B strep negative. 4. Influenza A. 5. Postdates . 6. Anemia of . 7. Obesity. 8. Excessive weight gain of . 9. Edema in the third trimester. 10.Carpal tunnel syndrome of . 11.Pruritus in . 12.History of infections with Trichomonas, gonorrhea, chlamydia and bacterial vaginosis this . BRIEF HISTORY: A 26-year-old female presented to the hospital with onset of spontaneous labor, josé regularly. She was making some cervical change with a little bit of Pitocin augmentation. She then went on to have an intrathecal when she was 5 to 6 cm dilated and artificial rupture of membranes with clear fluid was performed. After that, she went on to complete with approximately stage I of 15 hours total. She was having no pain in the perineal region, and feeling a lot of back pain with contractions. So, we set her up for delivery and vacuum assistance was attempted; however, there were 3 pop-offs, so it was not successful and she went on to spontaneous vaginal delivery with details as below. CONSENT:For the attempted vacuum assistance discussed with her and her mother. Indications: Maternal benefit for expediting delivery due to pain with contractions in her back. Bladder was emptied with straight catheter. Exit strategy was available. Mushroom Cup style hand-held vacuum was used. Pre- determined amount of pop-offs. It was held in the yellow zone between contractions and in the green zone with contractions. It was used for a total of 4 contractions, but we did have 3 pop-offs, so these attempts were aborted; however, by this time, the baby was also quite nicely and mother was going to be able to finish the delivery on her own. DETAILS: With the patient in Tramaine' position, she delivered a viable female infant in the OA position over intact perineum. Baby was dried and suctioned and placed up on mother's abdomen. Three-vessel umbilical cord was doubly clamped and cut and cord blood sample obtained and handed off to the nurse. Placenta then delivered by gentle cord traction and concomitant uterine massage, inspected, and intact. The labia, vagina, and cervix were inspected. There were anterior labial lacerations that did not need repair as they were superficial and hemostatic. There was a first degree vaginal laceration approximately 5 cm in length, which was sutured closed with a running locked stitch of 3-0 Vicryl. I did extend this into the patient's right side labial laceration. After suturing, it was not hemostatic. Near the apex, there was a bleeding area which was controlled with a single [id number] suture. For the bleeding sites from the suture placement itself on the labia, simple pressure was held resulting in good hemostasis thereafter. COMPLICATIONS: None. FINDINGS: Viable female , score of 7 and 9, weight 4340 g, 9 pounds 9 ounces. ESTIMATED BLOOD LOSS: 500 mL. DISPOSITION: Mother and baby to stay in the room to initiate skin to skin and . The patient's questions answered. [facility] /[id number] LEONARDA
[2021-06-16] MEDS: Docusate Sodium 100 MG Cap PO PRN (22:20)
[2021-06-16] MEDS: Ibuprofen 800 MG Tab PO PRN (22:21)
[2021-06-17] MEDS: Prenatal Multivitamin with Calcium/Folic Acid/Iron Tab PO SCH (10:47)
[2021-06-17] MEDS: Docusate Sodium 100 MG Cap PO PRN ×2 (10:47→19:42)
[2021-06-17] MEDS: Ibuprofen 800 MG Tab PO PRN ×2 (10:47→19:42)
[2021-06-17] MEDS: Benzocaine/Cetylpyridinium/Menthol Lozenge MUCMEM PRN (11:08)
--- NOTE | 2021-06-17 13:21 | PN ---
DATE: 06/17/2021 SUBJECTIVE: day #1, status post vaginal delivery with first-degree laceration repair and some brisk bleeding controlled with bimanual massage and uterotonic agents. The patient reports she is doing well ambulating, tolerating a regular diet. Influenza symptoms are gradually improving. No new shortness of breath or chest pain. Bleeding has been about like a menstrual. Cramping has been well controlled. Continues to have some swelling of the lower extremities. Reports that she is voiding well and passing flatus. She is electing to primarily bottle feed her baby at this time and denies other acute concerns. Mother remains here in the hospital with her as her support person, and in general, she feels like she is doing well. OBJECTIVE: Vital Signs: Blood pressure 144/73, previous was 139/65, pulse of 86, respiratory rate of 18, temperature is 98.3. Heart: Regular without obvious murmur. Lungs: Clear to auscultation bilaterally today. She does have an occasional wet sound and cough, however. Abdomen: Soft, nontender. Fundus is firm and below the umbilicus. Extremities: 1+ pitting edema bilaterally. No erythema or tenderness. Skin: Without rash. ASSESSMENT: 1. Status post vaginal delivery day #1. 2. 1, now para 1-0-0-1. 3. Excessive weight gain in . 4. Influenza A. 5. Proteinuria of . 6. Edema of . 7. Anemia of . 8. Anemia of acute blood loss. 9. Mild thrombocytopenia. PLAN: Continue normal post vaginal delivery care and anticipate discharge home tomorrow as long as all continues to go well. She has had some elevated blood pressures during her hospital stay. Therefore, we will add on some preeclampsia labs and we will need to get a catheterized urine sample in order to get an accurate protein to creatinine ratio. [facility] /[id number]
[2021-06-18] MEDS: Ibuprofen 800 MG Tab PO PRN (08:42)
[2021-06-18] MEDS: Docusate Sodium 100 MG Cap PO PRN (08:42)
[2021-06-18] MEDS: Prenatal Multivitamin with Calcium/Folic Acid/Iron Tab PO SCH (08:42)
[2021-06-18 09:16] VITALS: BP 141/75; PULSE 99
--- NOTE | 2021-06-19 00:31 | DISCH ---
ADMITTING DIAGNOSES: 1. 40 and 6/7 weeks intrauterine based on 13-week ultrasound. 2. 1, para 0. 3. Excessive weight gain of . 4. Proteinuria of . 5. Edema of . 6. Anemia of . 7. -related pruritus. 8. Carpal tunnel syndrome of . 9. Influenza A. 10.Rubella nonimmune. 11.Group B strep negative. 12.Blood type O positive. 13.Second trimester treatment for urinary tract infection, first trimester treatment for Trichomonas, bacterial vaginosis, gonorrhea and chlamydia with test of cure negative in the third trimester. DISCHARGE DIAGNOSES: 1. 40 and 6/7 weeks intrauterine based on 13-week ultrasound. 2. 1, now para 1-0-0-1. Status post spontaneous vaginal delivery, large for gestational age female infant. 3. Excessive weight gain of .. 4. Proteinuria of . 5. Edema of . 6. Anemia of . 7. -related pruritus. 8. Carpal tunnel syndrome of . 9. Influenza A. 10.Rubella nonimmune. 11.Group B strep negative. 12.Blood type O positive. 13.Second trimester treatment for urinary tract infection, first trimester treatment for Trichomonas, bacterial vaginosis, gonorrhea and chlamydia with test of cure negative in the third trimester. 14.Transient thrombocytopenia. 15.Gestational hypertension. 16.Negative labs for preeclampsia. 17.Anemia of acute blood loss. BRIEF HISTORY: A 26-year-old female with the above-listed diagnoses was scheduled for induction of labor due to postdates and was found to have influenza, so her induction date was pushed back slightly. She then presented to the hospital in spontaneous labor about 10 hours before her scheduled induction. Labor was in progress and we did use some Pitocin and artificial rupture of membranes for augmentation. Stage I was approximately 15 hours, stage II 33 minutes and stage III 5 minutes. In stage II, the patient did have a vacuum assist with 3 pop-offs performed because of severe maternal back pain. Ultimately, she had a spontaneous vaginal delivery as with the 3rd pop-off, she was . She had a vaginal laceration repaired with 3-0 Vicryl. The baby's weight 4340 g, 9 pounds 9 ounces, score of 7 and 9 and overall did well. HOSPITAL COURSE: Good. She is ambulating, tolerating regular diet, voiding, stooling as appropriate. No chest pain or shortness of breath. Her influenza symptoms were treated with Tamiflu that was initiated prior to admission, and by time of discharge, she was starting to feel better and remaining afebrile. Bonding with her baby well and elected to bottle feed. During her hospital stay, she had the elevated blood pressures and protein-creatinine ratio was 0.168. The outpatient protein-creatinine ratio on 06/06 was 0.3. Other [facility] labs also were negative. DISPOSITION: Home with family. CONDITION: Good. The patient doing well, meeting above discharge criteria. Temperature is 98.9, pulse 99. Final blood pressure of 141/75, respiratory rate of 16, and O2 saturations 97% on room air. FOLLOWUP: She will be seen in the next couple of days in the office with her baby for blood pressure check. INSTRUCTIONS: Routine post-vaginal delivery care instructions were provided as well as additional information on reducing risk of transmission of influenza to her baby as well as signs and symptoms of preeclampsia for which to monitor for. MEDICATIONS: 1. vitamin 1 p.o. daily. 2. Iron 325 mg twice daily. 3. Ibuprofen 800 mg every 8 hours as needed for pain. 4. Tylenol 650 mg every 6 hours as needed for pain. 5. Colace 100 mg twice daily as needed for constipation. 6. Dermoplast spray as needed. [facility] /[id number]
== END 2021-06-18 13:04 | disposition home or self-care (01) | DRG 806 ==
LOC: DL.OB 09:30 → OBSVTOIN 20:22
PROVIDERS: ADMIT Family Medicine; ATTEND Family Medicine
PROC: 10E0XZZ Delivery of Products of Conception, External Approach (ICD-10-PCS; principal; 2021-06-16)
PROC: 10907ZC Drainage of Amniotic Fluid, Therapeutic from Products of Conception, Via Natural or Artificial Opening (ICD-10-PCS; principal; 2021-06-16)
PROC: 0HQ9XZZ Repair Perineum Skin, External Approach (ICD-10-PCS; principal; 2021-06-16)
DX: O12.24 Gestational edema with proteinuria, complicating childbirth (principal); O99.12 Other diseases of the blood and blood-forming organs and certain disorders involving the immune mechanism complicating childbirth; Z37.0 Single live birth; D62 Acute posthemorrhagic anemia; O99.354 Diseases of the nervous system complicating childbirth; O98.52 Other viral diseases complicating childbirth; Z3A.40 40 weeks gestation of pregnancy; O99.02 Anemia complicating childbirth; O99.52 Diseases of the respiratory system complicating childbirth; O13.4 Gestational [pregnancy-induced] hypertension without significant proteinuria, complicating childbirth; J10.1 Influenza due to other identified influenza virus with other respiratory manifestations; O48.0 Post-term pregnancy; O99.214 Obesity complicating childbirth; E66.9 Obesity, unspecified; O26.03 Excessive weight gain in pregnancy, third trimester; D69.6 Thrombocytopenia, unspecified; O70.0 First degree perineal laceration during delivery; Z20.822 Contact with and (suspected) exposure to COVID-19
CPT/HCPCS: 36415; 51701; 59025; 59409; 80305-QW; 82565; 82570; 84156; 84450; 84460; 84520; 85027; 90471; 90707; A9270-GY; J0171; J2210; J2405; J2590; J3010; J7120; U0002

== ENCOUNTER 2022-09-03 10:22 | Emergency (ER) | payer MEDICAID ==
[2022-09-03 10:38] VITALS: PULSE 69
[2022-09-03 10:41] VITALS: BP 111/81
== END 2022-09-03 13:09 | disposition home or self-care (01) ==
LOC: DL.ED 10:22
DX: M54.50 Low back pain, unspecified (principal); N39.0 Urinary tract infection, site not specified; Z72.0 Tobacco use
CPT/HCPCS: 72100; 81001; 81025; 87086; 87088; 87186; 99284

== ENCOUNTER 2022-09-04 20:42 | Emergency (ER) | payer MEDICAID ==
[2022-09-04 21:03] VITALS: BP 105/66; PULSE 89
[2022-09-04] MEDS ORDERED: Cyclobenzaprine 10 MG Tab PO ONE (21:16)
== END 2022-09-04 21:33 | disposition home or self-care (01) ==
LOC: DL.ED 20:42
DX: M62.830 Muscle spasm of back (principal); Z88.8 Allergy status to other drugs, medicaments and biological substances
CPT/HCPCS: 99283; A9270-GY

== ENCOUNTER 2022-11-04 13:50 | Emergency (ER) | payer MEDICAID ==
[2022-11-04] MEDS ORDERED: Ibuprofen 400 MG Tab PO ONE (14:14)
[2022-11-04 15:05] VITALS: BP 128/65; PULSE 88
== END 2022-11-04 15:08 | disposition home or self-care (01) ==
LOC: DL.ED 13:50
DX: S93.491A Sprain of other ligament of right ankle, initial encounter (principal); Z88.8 Allergy status to other drugs, medicaments and biological substances; W18.49XA Other slipping, tripping and stumbling without falling, initial encounter; Y93.02 Activity, running
CPT/HCPCS: 73610; 99283; A9270

== ENCOUNTER 2023-01-27 20:50 | Emergency (ER) | payer MEDICAID ==
[2023-01-27 22:10] VITALS: PULSE 89
== END 2023-01-27 23:15 | disposition left against medical advice (07) ==
LOC: DL.ED 20:50
DX: Z53.21 Procedure and treatment not carried out due to patient leaving prior to being seen by health care provider (principal)